=== PATIENT | female | born 1995 | race Hispanic/Latino ===

== ENCOUNTER 2019-04-03 17:00 | Inpatient (IN) | payer BC ==
[~2019-04-03 17:00] MED LIST: Bupivacaine 0.25% HCL 30 ML VIAL ONE; ePHEDrine/0.9% NaCl/PF SYRINGE 50 mg/10 ml ONE
[2019-04-03 17:38] VITALS: BMI 45.3
[2019-04-03 18:19] LABS: Amnisure Internal Control QC ACCEPTABLE (ACCEPTABLE); Amnisure Test RUPTURE DETECTED (No Rupture)
[2019-04-03] MEDS ORDERED: Ibuprofen 800 MG TAB PO PRN (19:19)
[2019-04-03] MEDS ORDERED: Lidocaine 1% (PF) 30 ML VIAL SC PRN (19:19)
[2019-04-03] MEDS ORDERED: Butorphanol Tartrate 1 MG/ML VIAL SLOW IVP PRN (19:19)
[2019-04-03] MEDS ORDERED: Meperidine HCl/PF 25 MG/ML VIAL IM/IV PRN (19:19)
[2019-04-03] MEDS ORDERED: NS / Oxytocin 40 units/1000ml 1,000 ML IV PRN (19:19)
[2019-04-03] MEDS ORDERED: Acetaminophen 500 MG TAB PO PRN (19:19)
[2019-04-03] MEDS ORDERED: HYDROcodone/Acetaminophen 5/325 mg Tablet PO PRN ×2 (19:19)
[2019-04-03] MEDS ORDERED: Ondansetron PF 4 MG/2 ML Vial IVP PRN (19:19)
[2019-04-03] MEDS ORDERED: Zolpidem Tartrate 5 MG TAB PO PRN (19:19)
[2019-04-03] MEDS ORDERED: Promethazine HCl 25 MG/ML VIAL IM PRN (19:19)
--- NOTE | 2019-04-03 19:25 | PDOC.LDHP ---
Labor and Delivery H&P Chief complaint: loss of fluid HPI: 23 yo LAF presents c/o LOF at 3am and again at 2pm today. Denies bleeding or UCs. Current gestational age (weeks): 38 Dating criteria: last menstrual period Grav: 1 Para: 0 OB History Details: PNC with Dr. Berkowitz w/o reported complications. Current complications: none Abnormal US findings: No Past Medical History: none Current medications: pre-moreno vitamins Previous surgical history: other (T&A) Allergies/Adverse Reactions: Allergies Allergy/AdvReac Type Severity Reaction Status Date / Time No Known Allergies Allergy Unverified 04/03/19 17:35 Social history: none - Physical Exam Vital signs reviewed and normal: yes General: NAD Heart: RRR Lungs: CTAB Abdomen: gravid Extremeties: trace edema FHT: category 1 [place] contractions every: none seen - Vaginal Exam cm dilated: 2 Effacement: 50% Station: -1 - OB Labs GBS: positive - Assessment L&D Assessment: term rupture in membranes - Plan Plan: admit to L&D, cervical ripening, labor augmentation if indicated, GBS antibiotic prophylaxis, informed consent obtained (Dr. Berkowitz notified.)
[2019-04-03] MEDS ORDERED: NS w/ Oxytocin 10 units 500 ML IV SCH (19:30)
[2019-04-03] MEDS ORDERED: Lactated Ringer's 1,000 ML IV SCH (19:30)
[2019-04-03] MEDS ORDERED: Penicillin G Potassium 5 MILL.UNITS in Sodium Chloride 0.9% 100 ML IVPB SCH (20:00)
[2019-04-03] MEDS: Misoprostol 100 MCG TAB PO SCH (20:05)
[2019-04-03 20:44] LABS: Hemoglobin 12.6 g/dL (12.0-16.0); Mean Corpuscular HGB CONC 34.8 g/dL (32.0-36.0); Mean Corpuscular Hemoglobin 31.1 pg (27.0-31.0); Mean Corpuscular Volume 89.5 fL (78.0-98.0); Mean Platelet Volume 7.5 fL (7.4-10.4); Platelet Count 233 thou/uL (130-400); RBC Distribution Width 12.1 % (11.5-14.5); Red Blood Cell (RBC) Count 4.05 mill/uL (4.20-5.40); White Blood Cell (WBC) Count 8.2 thou/uL (4.8-10.8)
[2019-04-03 21:26] LABS: Syphilis Antibody Nonreactive (Nonreactive); Syphilis Antibody Index 0.03 S/CO (<1.00 Non-Reactive)
[2019-04-04] MEDS: Penicillin G 2.5 MILL.units 2.5 MILL.UNITS in Premix Bag 1 BAG IVPB SCH ×5 (00:07→19:11)
[2019-04-04] MEDS: Misoprostol 100 MCG TAB PO SCH ×3 (00:08→19:11)
[2019-04-04 01:29] LABS: HBSAg Index 0.32 S/CO (0-0.99); Hep B Surf Ag Non-Reactive S/CO (NonReactive)
--- NOTE | 2019-04-04 05:46 | PDOC.EVN ---
Event Note - Event Note Event Note: Pt. comfortable. 3rd PO Cytotec given at 4:30 am. FHTs stable, irregular UCs seen. SVE remains 2 cm. Plan: Cont. induction.
[2019-04-04] MEDS ORDERED: Fentanyl 4 mcg/Bup 0.1% Cadd 100 ML ONE (09:34)
[2019-04-04] MEDS: Lactated Ringer's 1,000 ML IV SCH ×2 (09:52→19:10)
[2019-04-04] MEDS ORDERED: Lactated Ringer's 500 ML IV PRN (10:32)
[2019-04-04] MEDS ORDERED: ePHEDrine/0.9% NaCl/PF SYRINGE 50 mg/10 ml SLOW IVP PRN (10:32)
[2019-04-04] MEDS ORDERED: Acetaminophen 325 MG TAB PO PRN (10:32)
[2019-04-04] MEDS ORDERED: Naloxone HCl 0.4 mg/ml Vial IVP PRN ×2 (10:32)
[2019-04-04] MEDS ORDERED: diphenhydrAMINE 50 MG/ML VIAL IVP PRN (10:32)
[2019-04-04] MEDS ORDERED: Promethazine HCl 25 MG/ML VIAL IM PRN ×2 (10:32→19:26)
[2019-04-04] MEDS ORDERED: Ondansetron PF 4 MG/2 ML Vial IVP PRN ×2 (10:32→19:26)
[2019-04-04] MEDS ORDERED: Fentanyl 4 mcg/Bupivacaine 0.1% Cassette 100 ML EPIDURAL SCH (10:45)
[2019-04-04] MEDS ORDERED: Communication Order-Pharmacy FS SCH (10:45)
--- NOTE | 2019-04-04 16:40 | PDOC.OPDEL ---
OB Operative/Delivery Note Delivery Dr/Surgeon: brian for [facility] Pre-Delivery Diagnosis: active labor, other (prematrue rom) Procedure/Post Delivery Dx: spontaneous vaginal delivery Weeks gestation: 38 Anesthesia: epidural - Findings A Sex: female Weight: 0 oz (wt and pending ) - Additional Findings/Plan Placenta delivered: spontaneous Repaired Obstetrical Laceration: 2nd degree Estimated blood loss: 350 Compilations/Other Findings: none repair with 20 chromic Post delivery plan: routine recovery
[2019-04-04] MEDS ORDERED: NS / Oxytocin 40 units/1000ml 1,000 ML IV SCH (19:26)
[2019-04-04] MEDS ORDERED: Preparation H Ointment 28 GM TUBE PR PRN (19:26)
[2019-04-04] MEDS ORDERED: Milk Of Magnesia 30 ML UDCUP PO PRN (19:26)
[2019-04-04] MEDS ORDERED: diphenhydrAMINE 25 MG CAP PO PRN (19:26)
[2019-04-04] MEDS ORDERED: Lanolin Ointment 7 GM TUBE TOP PRN (19:26)
[2019-04-04] MEDS ORDERED: Benzocaine-Menthol 82.5 ML CAN TOP PRN (19:26)
[2019-04-04] MEDS ORDERED: HYDROcodone/Acetaminophen 5/325 mg Tablet PO PRN ×2 (19:26)
[2019-04-04] MEDS ORDERED: Bisacodyl 10 MG SUPP PR PRN (19:26)
[2019-04-04] MEDS ORDERED: Zolpidem Tartrate 5 MG TAB PO PRN (19:26)
[2019-04-04] MEDS: Ferrous Sulfate 325 MG TAB PO SCH (21:53)
[2019-04-04] MEDS: Ibuprofen 800 MG TAB PO SCH (21:58)
[2019-04-04] MEDS: Docusate Calcium (SURFAK) 240 MG CAP PO SCH (21:58)
[2019-04-05] MEDS: Ibuprofen 800 MG TAB PO SCH ×3 (06:06→22:06)
[2019-04-05] MEDS ORDERED: Adacel (T-DAP) 0.5 ML SYRINGE IM ONE (09:00)
[2019-04-05] MEDS: Prenatal Vitamin 1 TAB PO SCH (10:04)
[2019-04-05] MEDS: Docusate Calcium (SURFAK) 240 MG CAP PO SCH ×2 (10:05→22:06)
[2019-04-05] MEDS: Ferrous Sulfate 325 MG TAB PO SCH ×2 (10:05→16:41)
[2019-04-06] MEDS: Ibuprofen 800 MG TAB PO SCH ×2 (06:19→15:21)
[2019-04-06 08:11] VITALS: BP 115/54; TEMP 97.7
[2019-04-06] MEDS: Ferrous Sulfate 325 MG TAB PO SCH (10:49)
[2019-04-06] MEDS: Docusate Calcium (SURFAK) 240 MG CAP PO SCH (10:49)
[2019-04-06] MEDS: Prenatal Vitamin 1 TAB PO SCH (10:50)
== END 2019-04-06 17:40 | disposition home or self-care (01) | DRG 807 ==
LOC: L&D/OP 17:00 → L&D 22:44 → 3SE 04-04 21:12
PROVIDERS: ADMIT Obstetrics & Gynecology; ATTEND Obstetrics & Gynecology
PROC: 10E0XZZ Delivery of Products of Conception, External Approach (ICD-10-PCS; principal; 2019-04-04)
PROC: 0KQM0ZZ Repair Perineum Muscle, Open Approach (ICD-10-PCS; 2019-04-04)
DX: O42.02 Full-term premature rupture of membranes, onset of labor within 24 hours of rupture (principal); Z37.0 Single live birth; O70.1 Second degree perineal laceration during delivery; Z3A.38 38 weeks gestation of pregnancy
CPT/HCPCS: 36415; 84112; 85027; 86780; 86850; 86900; 86901; 87340; J0595; J2540; J2590; J3490; S0020